=== PATIENT | male | born 1970 | race Caucasian/White ===

== ENCOUNTER 2016-08-13 18:53 | Emergency (ER) | payer BC, OTHER ==
[~2016-08-13] VITALS: Ht 170.2 cm; Wt 87.5 kg
[2016-08-13 18:55] VITALS: BP 170/113; PULSE 90; TEMP 36.6; O2SAT 99; Ht 170.2 cm; Wt 87.5 kg
[2016-08-13] MEDS ORDERED: GELATIN SPONGE 12-7MM ONE (19:06)
[2016-08-13] MEDS ORDERED: DIPHTHERIA/TETANUS/PERTUSSIS 0.5 ML SYR/VIAL IM. ONE (19:15)
--- NOTE | 2016-08-13 19:50 | EMERGENCY ROOM VISIT NOTE ---
History First contact with patient: 19:01 Chief Complaint: LACERATION/CUT (NON-SUTURE) Stated Complaint: CUT TIP OF LF THUMB OFF Nursing Triage Summary: Laceration to left thumb. was trying to slice potatoes with a new slicer. Happened around 1800. Heavy bleeding. Uknown tetanus status History of Present Illness The patient is a 46 year old male who presents to the Emergency Room with complaints of a laceration to his left thumb tip while slicing potatoes tonight with a new mandolin. The patient is here because he could not get the bleeding to stop. The injury happened around 6 PM. The patient is [id number]. The patient is uncertain of his last tetanus immunization. Review of Systems 6 system review was performed and was negative except for pertinent positives and negatives as indicated in history of present illness Past Medical/Surgical History Medical Problems: (1) Asthma, Unspecified (2) Unilat Inguinal Hernia Family History Unremarkable Social History Smoking Status: Never Smoker Alcohol Use: occasionally Marital Status: Housing Status: lives with family Occupation Status: employed Allergies Uncoded Allergies: N (Allergy, Unknown, 05/10/02) NKDA (Allergy, Unknown, 05/10/02) Physical Exam Vital Signs Date Time Temp Pulse Resp B/P Pulse Ox O2 Delivery O2 Flow Rate FiO2 08/13/16 18:55 36.6 90 18 170/113 99 Room Air Physical Exam CONSTITUTIONAL: Healthy and well nourished. Alert and oriented X 3 with positive affect. HEENT: Normocephalic, atraumatic. Pupils equal, round and reactive. NECK: Full active range of motion without discomfort. MUSCULOSKELETAL: Examination of the left thumb shows a bleeding 0.75 cm diameter laceration over the radial aspect of the thumb tip. The nail plate is not involved. INTEGUMENTARY: No rash or other significant dermatologic conditions noted. NEUROLOGIC: Left thumb tip is sensory intact. Medical Decision & Procedures Medications Administered Medications (Trade) Dose Ordered Sig/Alena Route Start Time Stop Time Status Last Admin Dose Admin Diphtheria/ Pertussis/Tetanus Vacc (Adacel Inj) 0.5 ml ONCE ONCE IM. 08/13/16 19:15 08/13/16 19:16 DC 08/13/16 19:22 0.5 ML Procedure An initial Gelfoam pressure dressing was applied. The patient was observed for 15 minutes without any bleeding through. The dressing was bloody from initial application. At this point, the dressing was removed and reapplied with good hemostasis. ED Course Patient history and physical exam were performed. Nurse's notes were reviewed. Initial Gelfoam pressure dressing was applied which helped with hemostasis. Gelfoam pressure dressing was intact at the time of discharge. The patient was given additional verbal and written wound care instructions. Return for any signs of infection. Ibuprofen or Tylenol as needed for pain. The patient was happy with plan of care, voice understanding of all discharge instructions, and rated his discomfort a 2 out of 10 at the time of discharge. The patient was also administered Adacel on today's visit. Impression Primary Impression: Avulsion of skin of left thumb Departure Information Referrals Aguila Cota M.D. (PCP) Patient Instructions [facility] Problem Qualifiers Primary Impression: Avulsion of skin of left thumb Encounter type: initial encounter Qualified Codes: S61.002A - Unspecified open wound of left thumb without damage to nail, initial encounter
== END 2016-08-13 19:54 | disposition home or self-care (01) ==
LOC: C.EDB 18:54 → C.EDD 19:54
DX: J45.909 Unspecified asthma, uncomplicated (principal); K40.20 Bilateral inguinal hernia, without obstruction or gangrene, not specified as recurrent; S61.002A Unspecified open wound of left thumb without damage to nail, initial encounter; Z23 Encounter for immunization